=== PATIENT | female | born 1995 | race Caucasian/White ===

== ENCOUNTER 2020-03-09 06:09 | Inpatient (IN) | payer BC, SELFPAY ==
[2020-03-09] VITALS (108 sets, daily range): BP systolic 60–134; BP diastolic 43–118; PULSE 78–139; RESP 16; TEMP 36.5–37.1; O2SAT 100; BMI 25.6
[2020-03-09] MEDS: LACTATED RINGERS 1,000 ML 125 ML IV CONT ×2 (06:57→10:51)
[2020-03-09] MEDS: AMPICILLIN 2 GM/NS 100 ML 2 GM/100 ML BAG IVPB (06:58)
[2020-03-09 06:59] LABS: Basophils Percent Auto 0.3 % (0.2-1.2); Eosinophils Absolute Auto 0.3 K/mm3 (0-0.3); Eosinophils Percent Auto 2.3 % (0-4.4); Hematocrit 35.3 % (37.0-47.0); Hemoglobin 12.2 g/dL (12.0-15.0); Immature Granulocyte Absolute 0.15 K/mm3 (0.00-0.031); Immature Granulocyte Percent A 1.2 % (0-0.5); Lymphocytes Absolute Auto 2.91 K/mm3 (0.9-3.2); Lymphocytes Percent Auto 23.2 % (18.3-44.2); Mean Corpuscular HGB Conc 34.6 g/dl (32-36); Mean Corpuscular Hemoglobin 32.8 pg (26-34); Mean Corpuscular Volume 94.9 fl (80-100); Mean Platelet Volume 10.6 fl (7.4-10.4); Monocytes Percent Auto 8.2 % (2.6-8.5); Neutrophils Absolute Auto 8.1 K/mm3 (1.3-6.7); Neutrophils Percent Auto 64.8 % (45.5-73.1); Platelet Count Result 288 k/mm3 (150-375); Red Blood Count 3.72 M/mm3 (4.2-5.4); Red Cell Distribution Width 12.6 % (11.5-14.5); White Blood Count 12.6 K/mm3 (4.5-10.0)
[2020-03-09] MEDS: OXYTOCIN 30 UNITS/NS 500 ML 30 UNITS/500 ML BAG 6 UNITS IV CONT (06:59)
--- NOTE | 2020-03-09 08:55 | LDADM ---
This patient, Lin Campa, was admitted to Labor/Delivery/Recovery 107 on 03/09/20 at 06:09. Plans for labor, pain management and were discussed with patient. Patient/family oriented to hospital policies and general routines including ID bracelet, bed and alarms, visiting hours, pain management, procedures, bathroom and other care routines, personal items, smoking policy, room service/diet and guest tray routines, security routines, and visiting hours. Patient/Family are encouraged to report perceived risks to care and to ask questions if they do not understand what they are told or what they should do. See OBIX for further documentation.
--- NOTE | 2020-03-09 10:29 | WPDANESEPP ---
Anes - Eval Pre Procedure Procedure: Labor epidural Date/Time: 03/09/20 10:29 Surgeon: Ezequiel Savage M.D. Preop Diagnosis: pain during labor Pre Op Diagnosis: Induction of Labor Patient Data Age: 24 Gender: F Height: 1.74 m Weight: 77.5 kg Last Vital Signs Temp 36.6 C 03/09/20 07:30 Pulse 88 03/09/20 10:16 BP 122/78 03/09/20 10:16 Allergies Allergy/AdvReac Type Severity Reaction Status Date / Time No Known Allergies Allergy Mild Verified 08/12/10 11:13 Home Medications Medication Instructions Recorded Confirmed Type PNV cmb#95-ferrous fumarate-FA 1 tablet PO DAILY 02/25/20 02/25/20 History [] Laboratory Tests 03/09/20 03/09/20 03/09/20 06:45 06:45 06:45 WBC 12.6 K/mm3 H K/mm3 (4.5-10.0) RBC 3.72 M/mm3 L M/mm3 (4.2-5.4) Hgb 12.2 g/dL g/dL (12.0-15.0) Hct 35.3 % L % (37.0-47.0) MCV 94.9 fl fl (80-100) MCH 32.8 pg pg (26-34) MCHC 34.6 g/dl g/dl (32-36) RDW 12.6 % % (11.5-14.5) Plt Count 288 k/mm3 k/mm3 (150-375) MPV 10.6 fl H fl (7.4-10.4) Immature Gran % (Auto) 1.2 % H % (0-0.5) Neut % (Auto) 64.8 % % (45.5-73.1) Lymph % (Auto) 23.2 % % (18.3-44.2) [place] % (Auto) 8.2 % % (2.6-8.5) Eos % (Auto) 2.3 % % (0-4.4) Baso % (Auto) 0.3 % % (0.2-1.2) Lymph # (Auto) 2.91 K/mm3 K/mm3 (0.9-3.2) [place] # (Auto) 1.0 K/mm3 H K/mm3 (0.1-0.6) Eos # (Auto) 0.3 K/mm3 K/mm3 (0-0.3) Baso # (Auto) 0.0 K/mm3 K/mm3 (0.0-0.1) Abs Immat Gran (auto) 0.15 K/mm3 H K/mm3 (0.00-0.031) Absolute Neuts (auto) 8.1 K/mm3 H K/mm3 (1.3-6.7) Absolute Nucleated RBC 0.0 K/mm3 K/mm3 (0.0-0.012) Nucleated RBC % 0.0 % % (0.0-0.2) RPR Pending Blood Type O Positive Antibody Screen Negative Patient hx anesthesia problems: none Family hx anesthesia problems: none [facility] Family History Family History (Updated 02/25/20 @ 13:30 by David Foster RN) Other No pertinent family history Social History Social History Smoking status: Never smoker Substance use: never Gender identity (if verbalized by the patient): Female Spiritual care concerns: No Exam Day of Procedure 03/09/20 10:29
[2020-03-09] MEDS: AMPICILLIN 1 GM/NS 50 ML 1 GM/50 ML BAG IVPB ×2 (11:16→15:23)
--- NOTE | 2020-03-09 13:28 | WPDOBADMIT ---
Obstetrics - Admit Note Admission Note: 24 y/o G1 @ 39 weeks here for elective induction of labor 0745 VSS and afebrile Contractions regular FHR category 1 Cervix 4/80/-2 AROM moderate amount of clear odorless fluid Epidural prn Anticipate record reviewed. No pertinent additions to the history and/or any subsequent changes in the physical findings that are not consistent with the expected course of the were found. Additions to the history and/or subsequent changes in the physical findings follow. None.
--- NOTE | 2020-03-09 16:14 | PM.OBPRVD ---
OB - Delivery Note Procedure Delivery date: 03/09/20 Intrapartal events: Prolonged 2nd Stage > 2.5 hours Induction method: per pitocin protocol Delivery monitor: external FHT and external uterine Route of delivery: vacuum extraction Laceration description: Perineal - 2nd Degree Estimated blood loss (mL): 134 Anesthesia type: Epidural Baby Date of : 03/09/20 Time of : 15:54 Weeks of gestation at delivery: 39 Weight (pounds): 8 Weight (ounces): 1 presentation: vertex cord vessel description: 3 Vessels, Nuchal Cord, Tight (Unable to delivery through cord. After delivery of shoulder cord was clamped and .cut then delivery occured with 1 push) and Clamped/Cut Narrative: Infant was ROP but slowly rotated to SHAWN position with pushing. Pt had been pushing for 2+ hours and was exhausted however she wanted to continue pushing since she has had progress. Dr Savage came in to evaluate and agreed that vacuum was appropriate. Discussed risks vs benefits with patient and she wanted to proceed. Vacuum was placed with appropriate traction great progress was made. Vacuum was used with 2 contractions then removed and pt pushed to deliver head with 1 contraction. At delivery a tight nuchal cord was noted. Unable to deliver through so cord was clamped and cut. Delivery immediately after. Dr Savage present for entire delivery.
[2020-03-09] MEDS: OXYTOCIN 30 UNITS/NS 500 ML 30 UNITS/500 ML BAG 125 UNITS IV CONT (16:30)
[2020-03-09] MEDS: IBUPROFEN 600 MG TABLET PO (18:27)
[2020-03-09] MEDS: BENZOCAINE 20% AER SPR (*SP) 56 GM CAN 1 SPRAY TOPICAL (18:28)
[2020-03-09] MEDS: WITCH HAZEL 40 PADS 1 PAD TOPICAL (18:28)
--- NOTE | 2020-03-09 23:55 | PC.NURSE ---
1920 Pt admitted to room 281 per wheelchair from labor and delivery after vaginal delivery of viable male today at 1554 with Justus SOTO and Dr. Savage. Mother is a and is choosing to bottle feed infant; FOB present. Couple oriented to room, staffing and procedures; Admission folder reviewed. Pt's VSS and assessment WNL>
[2020-03-10] MEDS: IBUPROFEN 600 MG TABLET PO ×4 (00:30→23:35)
[2020-03-10 04:56] LABS: Hematocrit 30.2 % (37.0-47.0); Hemoglobin 10.4 g/dL (12.0-15.0)
[2020-03-10] MEDS: MULTIVIT/MIN/PREN/FOL AC/IRON TABLET 1 TAB PO (07:04)
[2020-03-10] MEDS: DOCUSATE SODIUM 100 MG CAPSULE PO (07:04)
--- NOTE | 2020-03-10 07:24 | PM.OBPNVD ---
OB - PN: Subj Subjective Date/time seen: 03/10/20 07:24 Patient comments: no complaints baby status: doing well OB - PN: Obj Data Labs CBC & Chem 7: 03/10/20 04:04 Labs: Laboratory Results - last 24 hr 03/09/20 03/10/20 06:45 04:04 Hgb 10.4 L Hct 30.2 L Blood Type O Positive Antibody Screen Negative OB - PN A/P Plan day: 1 Plan: routine care Time Spent With Patient Time: Total time spent is greater than 50% in coordination of care (as documented) at patient's floor/unit and/or counseling patient: Exam Const: General: comfortable Psych: Appearance: grossly normal Affect: normal affect Attitude: cooperative
--- NOTE | 2020-03-10 07:27 | WPDANLDPN2 ---
Anes-Prog Note L&D Date/Time: 03/10/20 07:27 Comfortable throughout: labor and delivery Neuraxial method: epidural Epidural/Spinal procedure site: clean & non-tender Neuro status: Neuro function grossly intact. Cardiovascular status: normal Respiratory status: normal Airway patency: baseline Mental status: baseline Post-Op hydration status: normal Vital Signs: Last Vital Signs Temp 37.1 C 03/09/20 19:55 Pulse 79 03/09/20 19:55 Resp 16 03/09/20 19:55 BP 111/66 03/09/20 19:55 Pulse Ox 100 03/09/20 12:44 I/O: Intake & Output 03/09/20 03/09/20 03/10/20 15:59 23:59 07:59 Intake Total 1050 Output Total 257 Balance 1050 -257 Post-procedural complaints: none Patient feedback: Patient satisfied with anesthetic care.
[2020-03-10 07:50] VITALS: BP 112/70; PULSE 85; RESP 16; TEMP 36.9; O2SAT 100
[2020-03-10 07:53] LABS: Rapid Plasma Reagin Non-Reactive (NonReactive)
[2020-03-10] MEDS: TETANUS,DIPHTHERIA,AC PERTUSSIS ADULT (0.5 ML) BOOSTRIX IM (14:44)
[2020-03-10 20:50] VITALS: BP 109/60; PULSE 89; RESP 18; TEMP 36.6; O2SAT 100
[2020-03-11] MEDS: IBUPROFEN 600 MG TABLET PO (08:28)
[2020-03-11 08:30] VITALS: BP 109/61; PULSE 84; RESP 18; TEMP 36.9
--- NOTE | 2020-03-11 08:57 | PM.OBPNVD ---
OB - PN: Subj Subjective Date/time seen: 03/11/20 08:57 Patient comments: no complaints, pain well controlled and other (Lochia similar to menses) [place] baby status: doing well OB - PN: Obj Data Labs CBC & Chem 7: 03/10/20 04:04 OB - PN A/P Plan day: 2 (s/p vaginal delivery, doing well) Plan: routine care, discharge home and other (Follow up in office in 4 weeks) Time Spent With Patient Time: Total time spent is greater than 50% in coordination of care (as documented) at patient's floor/unit and/or counseling patient: Exam Const: General: no acute distress GI: Inspection: other (Fundus firm and nontender below umbilicus) GI Palp: Yes Soft to palpation and No Tenderness to palpation present (GI) Extrem: General: no edema
--- NOTE | 2020-03-11 15:13 | PC.NURSE ---
1100 parents viewed the discharge DVD.
--- NOTE | 2020-03-29 15:40 | PM.OBDSVD ---
DS: Admitting Diagnosis Admitting Diagnosis Admitting Diagnosis: Encounter for supervision of normal , unspecified, third trimester OB - DS: Summary OB Procedures : None OB Procedures Intrapartum: Vacuum extraction OB Procedures: : None Time Spent with Patient Time attestation: Total time spent providing and/or coordinating discharge services: Discharge Plan Discharge Consulting providers: Delicia Obrien ; Cindy Givens Discharging Clinician: Dasia Holman Anticipated Discharge Date/Time: 03/11/20 12:00 Patient Disposition: Home, Self-Care Activity: may shower, may drive after 2 weeks, as tolerated and pelvic rest Diet: regular Discharge Instructions: Education: Mom and Baby Guide Given to: Mother Follow-Up: Call your delivering provider's office for an appointment to be seen in: 4 Weeks Mom and baby should come to the [facility] for the follow-up appointment. Appointment Date/Time: March 14, 2020 at 10:00 am What to expect at your follow-up visit: Blood Pressure Check Physical Assessment Call [phone] if you are unable to keep your appointment time. BREAST CARE: 1. Wear a snug supportive bra. 2. For engorgement discomfort: Bottle Feeding: A. May apply ice packs EPISIOTOMY/PERINEAL CARE: 1. Until bleeding stops, use your sabrina bottle after urinating 2. Change your pad frequently throughout the day 3. You may take sitz baths several times a day (fill your bathtub with warm water and soak for 20 minutes.) Do NOT bathe in the water 4. No tub baths until seen by your physician - You may shower ACTIVITY: 1. Rest as much as possible. 2. Do not exercise or lift anything heavier than your baby (such as laundry or other children.) 3. Avoid stairs or driving as much as possible. 4. Do not put anything into the vagina. No douching, tampons, or sexual activity until seen by physician. NOTIFY PHYSICIAN IF YOU HAVE ANY QUESTIONS OR IF ANY OF THE FOLLOWING SYMPTOMS OCCUR: 1. If your perineum becomes red, swollen, or more painful than what you have experienced in the hospital. 2. If your vaginal bleeding becomes foul smelling. 3. If your vaginal bleeding becomes more heavy than a period or if your bleeding changes from pink to bright red. However, you may pass an occasional walnut-sized clot once or twice for the first week . 4. If you experience a sharp, shooting pain in you calves. 5. If you discover a hard, reddened area on your breast or if you experience flu-like symptoms. 6. Temperature of 100.4 or higher DIET: 1. Eat regular, well-balanced meals. 2. Drink plenty of fluids daily. Stand Alone Forms: General Discharge Information Follow-up/Referrals: Peyton Savage MD [Physician] - 4 Weeks Discharge Medications: New ibuprofen 600 mg Tablet 600 mg PO Q6H PRN (Reason: Cramping) Qty: 60 RF: 0 Continued PNV cmb#95-ferrous fumarate-FA [] 28 mg iron- 800 mcg Tablet 1 tablet PO DAILY RF: 0 Date of admission: 03/09/20 06:09 Primary Care Provider: PHYSICIAN,INCENDIARY POWDER MIXER Admitting Provider: Peyton Savage Discharge Date/Time: 03/11/20 13:31 Attending physician on admission: Dasia Holman
== END 2020-03-11 13:31 | disposition home or self-care (01) | DRG 807 ==
LOC: ANHLDR 16:05 → ANHOB2 03-11 11:54 → ANHLDR 03-15 07:49 → ANHOB2 03-15 07:49
PROVIDERS: Advanced Practice Midwife; Admitting Provider Obstetrics & Gynecology; Visit Provider Obstetrics & Gynecology
DX: O63.1 Prolonged second stage (of labor) (principal); Z37.0 Single live birth; O99.824 Streptococcus B carrier state complicating childbirth; O69.1XX0 Labor and delivery complicated by cord around neck, with compression, not applicable or unspecified; Z3A.39 39 weeks gestation of pregnancy
CPT/HCPCS: 36415; 85014; 85018; 85025; 86592; 86850; 86900; 86901; 90715; A9270; J0290; J2590; J2795; J3010; J7120

== ENCOUNTER → 2022-03-12 01:38 | Outpatient (CLI) | payer OTHER, SELFPAY ==
[2022-03-12 16:48] LABS: SARS-CoV-2 RNA PCR Negative
== END ==
DX: R68.89 Other general symptoms and signs (principal); Z20.822 Contact with and (suspected) exposure to COVID-19
CPT/HCPCS: C9803; U0003; U0005

== ENCOUNTER 2022-12-02 07:10 | Inpatient (IN) | payer BC, MEDICAID, SELFPAY ==
[2022-12-02] VITALS (45 sets, daily range): BP systolic 91–123; BP diastolic 51–84; PULSE 71–152; RESP 16–18; TEMP 36.3–36.9; O2SAT 98–100; BMI 24.1
--- NOTE | 2022-12-02 07:10 | LDADM ---
This patient, Lin Campa, was admitted to Labor/Delivery/Recovery 109 on 12/02/22 at 07:10. Plans for labor, pain management and were discussed with patient. Patient/family oriented to hospital policies and general routines including ID bracelet, bed and alarms, visiting hours, pain management, procedures, bathroom and other care routines, personal items, smoking policy, room service/diet and guest tray routines, infant security routines, and visiting hours. Patient/Family are encouraged to report perceived risks to care and to ask questions if they do not understand what they are told or what they should do. See OBIX for further documentation.
[2022-12-02 07:49] LABS: Glucose Point of Care 90 mg/dl (65-105)
[2022-12-02] MEDS: LACTATED RINGERS 1,000 ML 125 ML IV CONT ×2 (08:01→09:37)
[2022-12-02] MEDS: OXYTOCIN 30 UNITS/NS 500 ML 30 UNITS/500 ML BAG IV CONT (08:01)
[2022-12-02 08:07] LABS: Basophils Absolute Auto 0.1 K/mm3 (0.0-0.1); Basophils Percent Auto 0.3 % (0.2-1.2); Eosinophils Absolute Auto 0.2 K/mm3 (0-0.3); Eosinophils Percent Auto 0.9 % (0-4.4); Hematocrit 34.7 % (37.0-47.0); Hemoglobin 11.9 g/dL (12.0-15.0); Immature Granulocyte Absolute 0.14 K/mm3 (0.00-0.031); Immature Granulocyte Percent A 0.8 % (0-0.5); Lymphocytes Absolute Auto 2.51 K/mm3 (0.9-3.2); Lymphocytes Percent Auto 13.7 % (18.3-44.2); Mean Corpuscular HGB Conc 34.3 g/dl (32-36); Mean Corpuscular Hemoglobin 32.6 pg (26-34); Mean Corpuscular Volume 95.1 fl (80-100); Mean Platelet Volume 10.5 fl (7.4-10.4); Monocytes Absolute Auto 0.8 K/mm3 (0.1-0.6); Monocytes Percent Auto 4.3 % (2.6-8.5); Neutrophils Absolute Auto 14.7 K/mm3 (1.3-6.7); Platelet Count Result 291 k/mm3 (150-375); Red Blood Count 3.65 M/mm3 (4.2-5.4); Red Cell Distribution Width 12.7 % (11.5-14.5); White Blood Count 18.3 K/mm3 (4.5-10.0)
--- NOTE | 2022-12-02 08:11 | WPDOBADMIT ---
Obstetrics - Admit Note Admission Note: record reviewed. No pertinent additions to the history and/or any subsequent changes in the physical findings that are not consistent with the expected course of the were found. IOL, hx GDM diet controlled, SVE 2-3/70/-1, AROM moderate amount of clear odorless fluid, anticipate vaginal delivery Additions to the history and/or subsequent changes in the physical findings follow. None.
--- NOTE | 2022-12-02 09:48 | WPDANESEPP ---
Anes - Eval Pre Procedure Procedure: labor pain management Date/Time: 12/02/22 09:48 Surgeon: radha Preop Diagnosis: pain during labor Pre Op Diagnosis: Induction of Labor Patient Data Age: 27 Gender: F Height: 1.73 m Weight: 72 kg Last Vital Signs Pulse 82 12/02/22 09:30 BP 117/72 12/02/22 09:30 Allergies Allergy/AdvReac Type Severity Reaction Status Date / Time No Known Allergies Allergy Mild Verified 11/19/22 12:45 Home Medications Medication Instructions Recorded Confirmed Type vit no.95-ferrous 1 tablet PO DAILY 02/25/20 12/02/22 History fumarate 28 mg-folic acid 800 mcg tablet () Laboratory Tests 12/02/22 12/02/22 12/02/22 07:40 07:40 07:40 WBC 18.3 K/mm3 H K/mm3 (4.5-10.0) RBC 3.65 M/mm3 L M/mm3 (4.2-5.4) Hgb 11.9 g/dL L g/dL (12.0-15.0) Hct 34.7 % L % (37.0-47.0) MCV 95.1 fl fl (80-100) MCH 32.6 pg pg (26-34) MCHC 34.3 g/dl g/dl (32-36) RDW 12.7 % % (11.5-14.5) Plt Count 291 k/mm3 k/mm3 (150-375) MPV 10.5 fl H fl (7.4-10.4) Immature Gran % (Auto) 0.8 % H % (0-0.5) Neut % (Auto) 80.0 % H % (45.5-73.1) Lymph % (Auto) 13.7 % L % (18.3-44.2) [place] % (Auto) 4.3 % % (2.6-8.5) Eos % (Auto) 0.9 % % (0-4.4) Baso % (Auto) 0.3 % % (0.2-1.2) Lymph # (Auto) 2.51 K/mm3 K/mm3 (0.9-3.2) [place] # (Auto) 0.8 K/mm3 H K/mm3 (0.1-0.6) Eos # (Auto) 0.2 K/mm3 K/mm3 (0-0.3) Baso # (Auto) 0.1 K/mm3 K/mm3 (0.0-0.1) Abs Immat Gran (auto) 0.14 K/mm3 H K/mm3 (0.00-0.031) Absolute Neuts (auto) 14.7 K/mm3 H K/mm3 (1.3-6.7) Absolute Nucleated RBC 0.0 K/mm3 K/mm3 (0.0-0.012) Nucleated RBC % 0.0 % % (0.0-0.2) POC Capillary Glucose RPR Pending Blood Type O Positive Antibody Screen Negative 12/02/22 07:42 WBC RBC Hgb Hct MCV MCH MCHC RDW Plt Count MPV Immature Gran % (Auto) Neut % (Auto) Lymph % (Auto) [place] % (Auto) Eos % (Auto) Baso % (Auto) Lymph # (Auto) [place] # (Auto) Eos # (Auto) Baso # (Auto) Abs Immat Gran (auto) Absolute Neuts (auto) Absolute Nucleated RBC Nucleated RBC % POC Capillary Glucose 90 mg/dl mg/dl (65-105) RPR Blood Type Antibody Screen Patient hx anesthesia problems: none Family hx anesthesia problems: none Results Review: All pre-operative results and documents have been reviewed as part of the pre-operative evaluation. [facility] Past Medical History Medical History Family History Family History Grandparent Breast cancer Other No pertinent family history Social History Social History Smoking status: Never smoker Substance use: never Gender identity (if verbalized by the patient): Female Spiritual care concerns: No Exam Day of Procedure 12/02/22 09:48
--- NOTE | 2022-12-02 10:57 | PM.OBPRVD ---
OB - Delivery Note Procedure Delivery date: 12/02/22 Procedure: Events: Gestational Diabetes (diet controlled) Induction method: AROM and Per Pitocin Protocol Delivery monitor: External FHT and External Uterine Route of delivery: Laceration Description: None Specimen: No Quantitative Blood Loss (ml): 22 Anesthesia type: Epidural Disposition: Floor Narrative: mom and baby stable and doing skin to skin [place] Baby Date of : 12/02/22 Time of : 10:40 Weeks of gestation at delivery: 39 gender: Male Weight (pounds): 7 Weight (ounces): 2 presentation: compound position: Left Occiput Anterior Placenta delivery description: Spontaneous Cord Vessel Description: 3 Vessels, Clamped/Cut and Delayed Cord Clamping score one minute: 9 score five minutes: 9
[2022-12-02] MEDS: OXYTOCIN 30 UNITS/NS 500 ML 30 UNITS/500 ML BAG 125 UNITS IV CONT (11:16)
[2022-12-02] MEDS: ACETAMINOPHEN 325 MG TABLET 650 MG PO (13:34)
--- NOTE | 2022-12-02 14:10 | PC.NURSE ---
Patient transferred to post room #280 via ( w/c). Support person present. Oriented to unit, room, information board, rooming in, admission packet and security measures. Patient verbalizes understanding.
[2022-12-02] MEDS: IBUPROFEN 600 MG TABLET PO (16:34)
[2022-12-02] MEDS: DOCUSATE SODIUM 100 MG CAPSULE PO (16:34)
[2022-12-02 16:44] LABS: Rapid Plasma Reagin Non-Reactive (NonReactive)
[2022-12-03] MEDS: IBUPROFEN 600 MG TABLET PO (04:35)
[2022-12-03 04:53] LABS: Hematocrit 33.6 % (37.0-47.0); Hemoglobin 11.3 g/dL (12.0-15.0)
[2022-12-03 06:00] VITALS: BP 106/62; PULSE 73; RESP 16; TEMP 36.4; O2SAT 100
[2022-12-03 07:30] VITALS: BP 112/67; PULSE 78; RESP 16; TEMP 37.2; O2SAT 100
--- NOTE | 2022-12-03 08:15 | PM.OBPNVD ---
OB - PN: Subj Subjective Date/time seen: 12/03/22 08:15 Patient comments: no complaints baby status: doing well OB - PN: Obj Data Labs 12/03/22 04:30 Labs: Laboratory Results - last 24 hr 12/02/22 12/02/22 12/03/22 07:40 07:40 04:30 Hgb 11.3 L Hct 33.6 L RPR Non-reactive Blood Type O Positive Antibody Screen Negative OB - PN A/P Plan day: 1 Plan: routine care Time Spent With Patient Time: Total time spent is greater than 50% in coordination of care (as documented) at patient's floor/unit and/or counseling patient: Time with patient: less than 15 minutes Review of Systems Review of Systems: All systems reviewed & are unremarkable except as noted in HPI and below Exam Narrative: Fundus firm and vaginal flow controlled. No lower ext redness, warmth, or edema. Negative homans. Const: General: comfortable Chest: Breast/axilla inspection: normal inspection of the breasts Resp: Effort & Inspection: normal respiratory effort Cardio: Rate: regular rate GI: GI Palp: Yes Soft to palpation Psych: Appearance: grossly normal Affect: normal affect Attitude: cooperative Thought content: Yes Normal thought content present Judgement: Good judgement present (Psych)
--- NOTE | 2022-12-03 08:17 | P.DS_ITS ---
DS: Admitting Diagnosis Discharge Date 12/03/22 Admitting Diagnosis Induction of labor OB - DS: Summary OB Procedures : None OB Procedures Intrapartum: Spontaneous Vag Delivery OB Procedures: : None Time Spent with Patient Time attestation: Total time spent providing and/or coordinating discharge services: DS: Data Data Completed and Pending Labs on day of discharge: Labs from last 24 hours 12/03/22 12/02/22 12/02/22 04:30 07:40 07:40 Hgb 11.3 L Hct 33.6 L RPR Non-reactive Blood Type O Positive Antibody Screen Negative Discharge Plan Discharge Attending physician on discharge: Cindy Givens Discharging Clinician: Delicia Obrien Patient Disposition: Home, Self-Care Activity: pelvic rest Diet: as tolerated Patient Instructions: Antibiotic Form Stand Alone Forms: General Discharge Information Follow-up/Referrals: Delicia Obrien, CNM [Certified Nurse Ad Terminal Makeup Operator] - Discharge Medications: Continued PNV cmb#95-ferrous fumarate-FA [] 28 mg iron- 800 mcg Tablet 1 tablet PO DAILY Date of admission: 12/02/22 07:10 Primary Care Provider: UNKNOWN,DOCTOR Admitting Provider: Peyton Savage Attending physician on admission: Peyton Savage Condition: Stable
[2022-12-03] MEDS: DOCUSATE SODIUM 100 MG CAPSULE PO (08:49)
[2022-12-03] MEDS: TETANUS,DIPHTHERIA,AC PERTUSSIS ADULT (0.5 ML) BOOSTRIX IM (08:50)
[2022-12-04 12:40] VITALS: BP 119/76; PULSE 93; RESP 18; TEMP 36.4; O2SAT 100
--- NOTE | 2022-12-08 09:32 | PM.OBDSVD ---
DS: Admitting Diagnosis Discharge Date 12/03/22 Admitting Diagnosis Labor DS: Discharge Diagnosis Discharge Diagnosis (1) Vaginal delivery: Code(s): O80 - Encounter for full-term uncomplicated delivery Status: Acute OB - DS: Summary OB Procedures : None OB Procedures Intrapartum: Spontaneous Vag Delivery OB Procedures: : None Time Spent with Patient Time attestation: Total time spent providing and/or coordinating discharge services: Discharge Plan Discharge Attending physician on discharge: Cindy Givens Consulting providers: Judi Bhandari Discharging Clinician: Delicia Obrien Patient Disposition: Home, Self-Care Activity: pelvic rest Diet: as tolerated Discharge Instructions: Education: Mom and Baby Guide Given to: Mother Follow-Up: Call your delivering provider's office for an appointment to be seen in: 4 Weeks Mom [facility] baby [facility] the follow-up appointment. Appointment Date/Time: December 04, 2022 at 9:00 am What to expect at your follow-up visit: Blood Pressure Check Physical Assessment Call [phone] if you are unable to keep your appointment time. BREAST CARE: * Wear a snug supportive bra. * For engorgement discomfort: Bottle Feeding: * May apply ice packs PERINEAL CARE: * Until bleeding stops, use your sabrina bottle after urinating * Change your pad frequently throughout the day * You may take sitz baths several times a day (fill your bathtub with warm water and soak for 20 minutes.) Do NOT bathe in the water * No tub baths until seen by your physician - You may shower ACTIVITY: * Rest as much as possible. * Do not exercise or lift anything heavier than your baby (such as laundry or other children.) * Avoid stairs or driving as much as possible. * Do not put anything into the vagina. No douching, tampons, or sexual activity until seen by physician. NOTIFY PHYSICIAN IF YOU HAVE ANY QUESTIONS OR IF ANY OF THE FOLLOWING SYMPTOMS OCCUR: * If your vaginal bleeding becomes foul smelling. * If your vaginal bleeding becomes more heavy than a period or if your bleeding changes from pink to bright red. However, you may pass an occasional walnut-sized clot once or twice for the first week . * If you experience a sharp, shooting pain in your calves. * If you discover a hard, reddened area on your breast or if you experience flu-like symptoms. DIET: * Eat regular, well-balanced meals. * Drink plenty of fluids daily. Stand Alone Forms: General Discharge Information Follow-up/Referrals: Delicia Obrien, CHARLES [Certified Nurse Automotive Mechanical Engineer] - Discharge Medications: Continued PNV cmb#95-ferrous fumarate-FA [] 28 mg iron- 800 mcg Tablet 1 tablet PO DAILY Date of admission: 12/02/22 07:10 Primary Care Provider: UNKNOWN,DOCTOR Admitting Provider: Peyton Savage Attending physician on admission: Delicia Obrien Condition: Stable
== END 2022-12-03 13:13 | disposition home or self-care (01) | DRG 807 ==
LOC: ANHOB2 12-03 12:15 → ANHLDR 12-04 09:14 → ANHOB2 12-04 09:14
PROVIDERS: Admitting Provider Obstetrics & Gynecology; Referring Provider Advanced Practice Midwife; Visit Provider Advanced Practice Midwife
DX: O24.420 Gestational diabetes mellitus in childbirth, diet controlled (principal); Z37.0 Single live birth; Z3A.39 39 weeks gestation of pregnancy; O36.8330 Maternal care for abnormalities of the fetal heart rate or rhythm, third trimester, not applicable or unspecified; O32.6XX0 Maternal care for compound presentation, not applicable or unspecified
CPT/HCPCS: 36415; 82948; 85014; 85018; 85025; 86592; 86850; 86900; 86901; 90715; A9270; J2590; J2795; J7120

== ENCOUNTER 2023-09-24 13:29 | Emergency (ER) | payer BC, MEDICAID, SELFPAY ==
[2023-09-24 13:41] VITALS: BP 107/55; PULSE 96; RESP 18; TEMP 37; O2SAT 100
--- NOTE | 2023-09-24 16:20 | PC.NURSE ---
pt called at [phone] with no answer
--- NOTE | 2023-09-24 16:20 | PC.NURSE ---
called patient from waiting room, no answer
== END 2023-09-24 18:01 | disposition left against medical advice (07) ==
LOC: ANHED 17:02
DX: H57.11 Ocular pain, right eye (principal)
CPT/HCPCS: 99199

== ENCOUNTER 2023-09-25 04:25 | Emergency (ER) | payer BC, MEDICAID, SELFPAY ==
[2023-09-25 04:29] VITALS: BP 116/64; PULSE 78; RESP 20; TEMP 36.7; O2SAT 100
--- NOTE | 2023-09-25 05:38 | ED.EYEPROB ---
HPI - Eye Problem General Chief complaint: Eye Problems Stated complaint: eye infection? Time Seen by Provider: 09/25/23 05:04 History of Present Illness HPI Narrative: patient is a 28-year-old female presenting with concern for eye infection. States that sometime last week she developed redness and drainage from the right eye. She went to Urgent Care who prescribed antibiotic drops. Her symptoms did not improve so she went back and they added antibiotic ointment. She has been using this for the last several days and unfortunately her symptoms have continued. Her right eye continues to become more swollen and now her left eye is swollen. States that only her right eye is red. No vision changes, abdominal plegia, pain with eye movements, proptosis. No headaches or fevers. Denies swelling elsewhere. Does not wear contacts. Related Data Home Medications Medication Instructions Recorded Confirmed vit no.95-ferrous 1 tablet PO DAILY 02/25/20 12/02/22 fumarate 28 mg-folic acid 800 mcg tablet () Allergies Allergy/AdvReac Type Severity Reaction Status Date / Time No Known Allergies Allergy Mild Verified 09/25/23 04:47 Review of Systems Review of Systems: All systems reviewed & are unremarkable except as noted in HPI and below PMFSH Past Medical History Medical History Family History Family History Grandparent Breast cancer Other No pertinent family history Social History Social History Smoking status: Never smoker Substance use: never Lack of Transportation: No Lack of Food: Never True Current Housing: I Have Housing Concerned About Future Housing: No Difficulty Paying Gas/Electric Bills: No Difficulty Paying for Meds: No Currently Unemployed: No Education: High School Diploma/GED Difficulty w/ Childcare or Family Care: No Gender identity (if verbalized by the patient): Female Spiritual care concerns: No Exam Narrative: GENERAL: Nontoxic, no acute distress, pleasant cooperative HEAD: Normocephalic, atraumatic. EYES: PERRLA and EOMI. +bilateral periorbital edema, R>L; mild conjunctival injection on the R; no pain with EOM, no proptosis, no chemosis ENT: grossly unremarkable NECK: Supple. CHEST: No respiratory distress. HEART: Regular rate and rhythm EXTREMITIES: No edema. SKIN: Warm, dry, no rash. NEURO: Alert and oriented x3. PSYCH: Normal mood and affect. Course Vital Signs Vital signs: Vital Signs Temperature 98.0 F 09/25/23 04:29 Pulse Rate 78 09/25/23 04:29 Respiratory Rate 20 09/25/23 04:29 Blood Pressure 116/64 09/25/23 04:29 Pulse Oximetry 100 09/25/23 04:29 Oxygen Delivery Room Air 09/25/23 04:29 Temperature 98.0 F 09/25/23 04:29 Pulse Rate 76 09/25/23 06:21 Respiratory Rate 16 09/25/23 06:21 Blood Pressure 120/68 09/25/23 06:21 Pulse Oximetry 100 09/25/23 06:21 Oxygen Delivery Room Air 09/25/23 04:29 MDM - Eye Problem MDM Narrative Medical decision making narrative: 28-year-old female presenting with concern for eye infection. Vitals stable. Exam remarkable for the above. Visual acuity is normal. concerned that she is now developing periorbital cellulitis. I do not suspect orbital cellulitis at this point. Will start her on Augmentin and Bactrim and advised close Ophthalmology follow-up. Also possible that she is having an allergic reaction to the drops but will treat with antibiotics given the possibility of periorbital cellulitis. Appropriate return precautions given. Patient voiced understanding and is agreeable with this plan. Discharged in stable condition. Differential Diagnosis Differential diagnosis: Likely conjunctivitis and periorbital cellulitis Critical Care Time Critic
[2023-09-25] MEDS: AMOXICILLIN/CLAVULANATE K 875-125 MG TAB 1 TABLET PO (05:44)
[2023-09-25] MEDS: SULFAMETHOXAZOLE/TRIMETHOPRIM 800/160 MG DS TABLET 1 TAB PO (05:44)
[2023-09-25 06:21] VITALS: BP 120/68; PULSE 76; RESP 16; O2SAT 100
== END 2023-09-25 06:25 | disposition home or self-care (01) ==
PROVIDERS: Emergency Provider Emergency Medicine
DX: L03.213 Periorbital cellulitis (principal)
CPT/HCPCS: 99281; A9270